=== PATIENT | female | born 2000 | race Caucasian/White ===

== ENCOUNTER → 2022-12-19 | Outpatient (CLI) | payer OTHER ==
[2022-12-19 14:53] LABS: GC DNA AMPLIFICATION NEGATIVE (NEGATIVE)
[2022-12-19 15:09] LABS: HEMOGLOBIN 12.5 g/dl (12.0-15.5); MEAN CORPUSCULAR HGB CONC 32.9 g/dl (32.0-36.5); MEAN CORPUSCULAR VOLUME 88.2 fl (80.0-96.0); PLATELET COUNT, AUTOMATED 286 10^3/uL (150-450); RED BLOOD COUNT 4.31 10^6/uL (4.00-5.40); WHITE BLOOD COUNT 10.4 10^3/uL (4.0-10.0)
[2022-12-19 15:55] LABS: HIV 1&2 SCREEN NEGATIVE (NEGATIVE)
[2022-12-19 16:02] LABS: HEPATITIS C VIRUS ABY INDEX 0.12 INDEX (<0.8)
== END ==
LOC: M PLALAB 11:38
PROVIDERS: ATTEND Specialist
DX: Z34.01 Encounter for supervision of normal first pregnancy, first trimester (principal); Z3A.00 Weeks of gestation of pregnancy not specified

== ENCOUNTER → 2023-02-06 | Outpatient (CLI) | payer OTHER | LOC: M WHC 08:36 | PROVIDERS: ATTEND Advanced Practice Midwife | DX: Z34.02 Encounter for supervision of normal first pregnancy, second trimester (principal) ==

== ENCOUNTER → 2023-03-12 | Outpatient (CLI) | payer OTHER | LOC: M WHC 08:20 | PROVIDERS: ATTEND Advanced Practice Midwife | DX: O32.1XX0 Maternal care for breech presentation, not applicable or unspecified (principal); O44.22 Partial placenta previa NOS or without hemorrhage, second trimester; O43.892 Other placental disorders, second trimester; Z3A.24 24 weeks gestation of pregnancy ==

== ENCOUNTER → 2023-03-31 | Outpatient (CLI) | payer OTHER ==
[2023-03-31 17:41] LABS: HEMATOCRIT 33.4 % (36.0-47.0); MEAN CORPUSCULAR HEMOGLOBIN 30.2 pg (27.0-33.0); MEAN CORPUSCULAR HGB CONC 32.9 g/dl (32.0-36.5); MEAN CORPUSCULAR VOLUME 91.8 fl (80.0-96.0); PLATELET COUNT, AUTOMATED 298 10^3/uL (150-450); RED BLOOD COUNT 3.64 10^6/uL (4.00-5.40); WHITE BLOOD COUNT 14.4 10^3/uL (4.0-10.0)
[2023-03-31 20:08] LABS: CHLAMYDIA DNA AMPLIFICATION NEGATIVE (NEGATIVE); GC DNA AMPLIFICATION NEGATIVE (NEGATIVE)
== END ==
LOC: M PLALAB 11:44
PROVIDERS: ATTEND Advanced Practice Midwife
DX: Z34.02 Encounter for supervision of normal first pregnancy, second trimester (principal)

== ENCOUNTER → 2023-04-16 | Outpatient (CLI) | payer OTHER | LOC: M WHC 07:40 | PROVIDERS: ATTEND Advanced Practice Midwife | DX: Z34.02 Encounter for supervision of normal first pregnancy, second trimester (principal) ==

== ENCOUNTER → 2023-04-22 | Outpatient (CLI) | payer OTHER | LOC: M LAB 07:41 | PROVIDERS: ATTEND Advanced Practice Midwife | DX: O99.810 Abnormal glucose complicating pregnancy (principal); Z3A.00 Weeks of gestation of pregnancy not specified ==

== ENCOUNTER → 2023-05-14 | Outpatient (CLI) | payer OTHER | LOC: M WHC 14:04 | PROVIDERS: ATTEND Advanced Practice Midwife | DX: Z36.4 Encounter for antenatal screening for fetal growth retardation (principal) ==

== ENCOUNTER → 2023-06-08 | Outpatient (CLI) | payer OTHER | LOC: M WHC 13:35 | PROVIDERS: ATTEND Obstetrics & Gynecology | DX: O36.5930 Maternal care for other known or suspected poor fetal growth, third trimester, not applicable or unspecified (principal) ==

== ENCOUNTER → 2023-06-09 | Outpatient (REF) | payer OTHER | LOC: M SFHCWAGY 13:07 | PROVIDERS: ATTEND Obstetrics & Gynecology | DX: Z36.4 Encounter for antenatal screening for fetal growth retardation (principal) ==

== ENCOUNTER 2023-07-02 03:12 | Inpatient (IN) | payer OTHER ==
[2023-07-02] VITALS (60 sets, daily range): BP systolic 89–148; BP diastolic 47–81; O2SAT 100
[~2023-07-02] VITALS: Ht 160 cm; Wt 101.1 kg
[2023-07-02] MEDS: LR 1,000 ML IV ONE (05:01)
[2023-07-02] MEDS: LR 1,000 ML IV SCH ×3 (05:01→21:10)
[2023-07-02] MEDS: PROMETHAZINE 25MG/ML 1ML VIAL IV ONE (05:01)
[2023-07-02] MEDS: BUTORPHANOL 2 MG/ML 1ML VIAL IV ONE (05:02)
[2023-07-02 05:04] LABS: HEMATOCRIT 36.4 % (36.0-47.0); HEMOGLOBIN 12.3 g/dl (12.0-15.5); MEAN CORPUSCULAR HEMOGLOBIN 29.6 pg (27.0-33.0); MEAN CORPUSCULAR HGB CONC 33.8 g/dl (32.0-36.5); MEAN CORPUSCULAR VOLUME 87.5 fl (80.0-96.0); PLATELET COUNT, AUTOMATED 229 10^3/uL (150-450); RED BLOOD COUNT 4.16 10^6/uL (4.00-5.40); WHITE BLOOD COUNT 11.3 10^3/uL (4.0-10.0)
[2023-07-02] MEDS ORDERED: OXYTOCIN DRIP 30 UNITS in IV 1 EA IV PRN ×3 (05:15)
[2023-07-02] MEDS ORDERED: CARBOPROST TROMETHAMINE 250 MCG/ML AMP IM PRN (05:15)
[2023-07-02] MEDS ORDERED: TRANEXAMIC ACID INJection 1,000 MG in NS 100 ML IV PRN (05:15)
[2023-07-02] MEDS ORDERED: OXYTOCIN INJ 10UNITS/ML 1ML VIAL IM PRN (05:15)
[2023-07-02] MEDS ORDERED: METHYLERGONOVINE MALEATE 0.2MG/ML 1ML VIAL IM PRN (05:15)
[2023-07-02] MEDS ORDERED: LIDOCAINE 1% MDV 20ML VIAL INFIL PRN (05:15)
[2023-07-02] MEDS ORDERED: OXYTOCIN INJ 10UNITS/ML 1ML VIAL IV PRN (05:15)
[2023-07-02] MEDS ORDERED: diphenhydrAMINE 50MG/ML VIAL IV PRN (05:40)
[2023-07-02] MEDS ORDERED: NALOXONE INJ 0.4MG/1ML VIAL IV PRN (05:40)
[2023-07-02] MEDS ORDERED: EPIDURAL/PCA KEYS XX PRN (05:40)
[2023-07-02] MEDS ORDERED: ONDANSETRON 4MG 2ML VIAL IV PRN ×2 (05:40→21:10)
[2023-07-02] MEDS: FENTANYL/ROPIVACAINE/NACL BAG 100 ML EPIDURAL SCH (06:07)
[2023-07-02] MEDS: PENICILLIN G POTASSIUM 5 MU IV 5 MU in D5W MINI-BAG PLUS 100 ML IV ONE (07:57)
[2023-07-02] MEDS: ePHEDrine SULFATE 25 MG/5 ML(5MG/ML) SYRINGE IVP PRN (09:36)
[2023-07-02] MEDS: LR 500 ML IV PRN (09:42)
[2023-07-02] MEDS: PEN G POT 3,000,000 UNIT/50 ML 3,000,000 UNIT in IV 1 EA IV SCH (12:00)
[2023-07-02] MEDS: OXYTOCIN DRIP 30 UNITS in IV 1 EA IV SCH ×2 (16:44→21:10)
[2023-07-02] MEDS ORDERED: CALCIUM CARBONATE 500 MG CHEW U/D PO PRN (21:10)
[2023-07-02] MEDS ORDERED: RHOGAM 300MCG (1500IU) INJ IM SCH (21:10)
[2023-07-02] MEDS ORDERED: IBUPROFEN 600MG TAB PO PRN (21:10)
[2023-07-02] MEDS ORDERED: DIBUCAINE 1% OINTMENT 30GM TOP PRN (21:10)
[2023-07-02] MEDS ORDERED: ACETAMINOPHEN TAB 650MG DOSE (2X325MG) PO PRN (21:10)
[2023-07-02] MEDS ORDERED: ANUSOL HC CREAM 30GM TOP PRN (21:10)
[2023-07-02] MEDS: IBUPROFEN 800 MG TAB PO PRN (22:34)
[2023-07-02] MEDS: ACETAMINOPHEN 500 MG TAB PO PRN (22:34)
[2023-07-03 06:00] VITALS: BP 108/52; O2SAT 98
[2023-07-03] MEDS: PRENATAL VITAMINS CHEWABLE TABLET PO SCH (07:53)
[2023-07-03 18:00] VITALS: BP 129/63; O2SAT 98
[2023-07-03] MEDS: DOCUSATE SODIUM 100MG CAPSULE PO PRN (18:39)
[2023-07-04 05:47] VITALS: BP 130/80
[2023-07-04] MEDS: MEASLES,MUMPS,RUBELLA VACCINE INJ (MMR-II) SC.IMMUN ONE (09:38)
[2023-07-04] MEDS ORDERED: COLA100C5 PO (12:55)
[2023-07-04] MEDS ORDERED: IBUP-1022 PO (12:55)
[2023-07-04] MEDS ORDERED: ACET-683 PO (12:55)
== END 2023-07-04 14:06 | disposition home or self-care (01) | DRG 560 ==
LOC: M LDO 03:12 → M LDI 05:16 → M OBS 07-03 00:32
PROVIDERS: ADMIT Obstetrics & Gynecology; ATTEND Obstetrics & Gynecology
PROC: 10E0XZZ Delivery of Products of Conception, External Approach (ICD-10-PCS; principal; 2023-07-02)
PROC: 0KQM0ZZ Repair Perineum Muscle, Open Approach (ICD-10-PCS; 2023-07-02)
DX: O99.824 Streptococcus B carrier state complicating childbirth (principal); Z37.0 Single live birth; Z3A.40 40 weeks gestation of pregnancy; O70.1 Second degree perineal laceration during delivery